=== PATIENT | male | born 1970 | race African-American/Black ===

== ENCOUNTER 2019-11-14 13:40 | Emergency (ER) | payer MEDICAID ==
[~2019-11-14] VITALS: Ht 172.7 cm; Wt 70.3 kg
[2019-11-14] MEDS ORDERED: METF-440 PO (13:45)
--- NOTE | 2019-11-14 13:53 | NUR ---
Dr. Lynch at bedside for MSE
[2019-11-14] MEDS ORDERED: IV NS 1000 ML 1,000 ML IV ONE (14:03)
--- NOTE | 2019-11-14 14:20 | NUR ---
Patient requesting to smoke, explained to patient that smoking is not allowed on campus. Patient then reached to his right side, patient pulled a beer can and asked why I spilled his beer. Explained to patient that he cannot have alcoholic beverages on campus and confiscated the cold beer. Patient then refused treatment plan.
--- NOTE | 2019-11-14 14:24 | NUR ---
Patient eloped from facility. ER physician notified.
== END 2019-11-14 14:24 | disposition left against medical advice (07) ==
LOC: ER 13:40
DX: R05 Cough (principal); Z20.828 Contact with and (suspected) exposure to other viral communicable diseases; R50.9 Fever, unspecified; E11.9 Type 2 diabetes mellitus without complications; F17.210 Nicotine dependence, cigarettes, uncomplicated; Z79.84 Long term (current) use of oral hypoglycemic drugs
CPT/HCPCS: 93005; A4663; J7030